=== PATIENT | female | born 1960 | race Hispanic/Latino ===

== ENCOUNTER 2017-07-12 16:13 | Inpatient (IN) | payer MEDICAID, OTHER ==
[2017-07-12 16:13] VITALS: BMI 45.3
--- NOTE | 2017-07-12 16:27 | ED PDOC ---
Psych Transfer Clearance - Clearance Statement Clearance Statement: Reviewed vital signs, lab results and transfer papers. Patient clinically stable for psychiatric admission.
[2017-07-12] MEDS ORDERED: DiphenhydrAMINE 50 mg/ml Inj IM PRN (17:19)
[2017-07-12] MEDS ORDERED: Alum-Mag Hydrox-Simethicone Susp (30 mL) PO PRN (17:19)
[2017-07-12 19:23] LABS: THYROID STIMULATING HORMONE 2.75 mIU/ML (0.46-4.68)
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
[2017-07-13] MEDS: Levothyroxine 88 MCG TAB PO SCH (06:34)
[2017-07-13] MEDS: Pantoprazole 40 mg EC Tab PO SCH (09:27)
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
[2017-07-13] MEDS: Divalproex 250 mg DR(BID formulation) PO SCH (18:24)
[2017-07-13 21:25] VITALS: O2SAT 97
[2017-07-14] MEDS: Levothyroxine 88 MCG TAB PO SCH (06:27)
[2017-07-14] MEDS: Divalproex 250 mg DR(BID formulation) PO SCH ×2 (09:32→17:53)
[2017-07-14] MEDS: Pantoprazole 40 mg EC Tab PO SCH (09:32)
--- NOTE | 2017-07-14 10:20 | PCM.PYCHPN ---
Psychiatric Progress Note - Psychiatric Progress Note Patient seen today, length of contact: pt seen and evaluated Patient Chief Complaint: pt has remained very easily,nervous,irritible and somewhat internally preoccupied.pt is at times disorganized in her thinking with a poor insight regarding her psych illness . Problems Identified/Issues Discussed: pt was admitted for psychotic agitation and homicidal ideation. Medical Problems: EKG results reviewed and normal sinus rhythm. WBC reviewed DSM 5 Symptoms Update: schizoaffective disorder Medication Change: No Medical Record Reviewed: Yes Mental Status Examination - Cognitive Function Orientation: Person, Place, Situation, Time Memory: Intact Attention: Poor Fund of Knowledge: Poor - Mood Mood: Depressed - Affect Affect: Flat, Depressed - Speech Speech: Appropriate - Formal Thought Process Formal Thought Process: No Impairment, Paranoia, Circumstantial - Suicidal Ideation Suicidal Ideation: No Goal/Treatment Plan - Goal/Treatment Plan Progress Toward Problem(s) and Goals/Treatment Plan: Anuel thomas ue the current regimen of clozaril,neurontin and depakote and ajust meds by following on wbc count and valproic acid leven and monitoring the psychosis. will engage pt in therapy Hospitalist follow up for hypothyroidism
--- NOTE | 2017-07-14 13:24 | CARD ---
APPROVED REPORT EKG Measurement Heart [id number] OR [id number] <Conclusion> Normal sinus rhythm Normal ECG
[2017-07-14] MEDS: Magnesium Hydroxide Susp 30 ml UD PO PRN (17:58)
[2017-07-15] MEDS: Levothyroxine 88 MCG TAB PO SCH (06:43)
[2017-07-15 08:36] LABS: BASO % 0.4 % (0.0-2.0); HEMATOCRIT 45.2 % (34.0-47.0); LYMPH # 1.9 K/uL (1.0-4.3); LYMPH % 27.8 % (20.0-40.0); MEAN CELL VOLUME 89.6 fl (81.0-99.0); MEAN CORPUSCULAR HGB CONC 32.4 g/dL (33.0-37.0); MEAN PLATELET VOLUME 9.9 fl (7.2-11.7); MONO # 0.4 K/uL (0.0-0.8); MONO % 6.7 % (0.0-10.0); NEUT # 4.4 K/uL (1.8-7.0); NEUT % 65.1 % (50.0-75.0); NRBC % 0.2 % (0.0-0.0); RED CELL DISTRIBUTION WIDTH 15.3 % (11.5-14.5); WHITE BLOOD COUNT 6.7 K/uL (4.8-10.8)
[2017-07-15] MEDS: Pantoprazole 40 mg EC Tab PO SCH (09:00)
[2017-07-15] MEDS: Divalproex 250 mg DR(BID formulation) PO SCH ×2 (09:00→17:39)
--- NOTE | 2017-07-15 18:56 | PCM.PYCHPN ---
Psychiatric Progress Note - Psychiatric Progress Note Patient seen today, length of contact: pt seen and evaluated Patient Chief Complaint: pt has been less ,nervous and less ,irritible and somewhat internally preoccupied.pt is at times disorganized in her thinking with a poor insight regarding her psych illness . WBC=6.7 today.no side effects to clozaril except pt c/o feeling tired at times. Problems Identified/Issues Discussed: pt was admitted for psychotic agitation and homicidal ideation. Medical Problems: EKG results reviewed and normal sinus rhythm. WBC reviewed is 6.7 today and ordered to repeat in am Medication Change: No Medical Record Reviewed: Yes Mental Status Examination - Cognitive Function Orientation: Person, Place, Situation, Time Memory: Intact Attention: Poor Fund of Knowledge: Poor - Mood Mood: Depressed - Affect Affect: Flat, Depressed - Speech Speech: Appropriate - Formal Thought Process Formal Thought Process: No Impairment, Paranoia, Circumstantial - Suicidal Ideation Suicidal Ideation: No Goal/Treatment Plan - Goal/Treatment Plan Progress Toward Problem(s) and Goals/Treatment Plan: Anuel galaviz the current regimen of clozaril,neurontin and depakote and adjust meds by following on wbc count and valproic acid level and monitoring the psychosis.will recheck wBC and valproic acid level in am will engage pt in therapy Hospitalist follow up for hypothyroidism
[2017-07-15] MEDS: Magnesium Hydroxide Susp 30 ml UD PO PRN (21:25)
[2017-07-16] MEDS: Levothyroxine 88 MCG TAB PO SCH (06:29)
[2017-07-16] MEDS: Divalproex 250 mg DR(BID formulation) PO SCH (08:56)
[2017-07-16] MEDS: Pantoprazole 40 mg EC Tab PO SCH (08:56)
--- NOTE | 2017-07-16 12:04 | PCM.PYCHPN ---
Psychiatric Progress Note - Psychiatric Progress Note Patient seen today, length of contact: in treatment team Patient Chief Complaint: when can i leave? Problems Identified/Issues Discussed: pt reports poor sleep. reports feeling paranoid and having thoughts about the world ending. she is tearful in groups at times. she appears to be internally preoccupied and anxious. no complaints of medication side effects. Medication Change: No Medical Record Reviewed: Yes Mental Status Examination - Cognitive Function Orientation: Person, Place, Situation, Time Memory: Intact Attention: WNL Concentration: WNL Association: WN Fund of Knowledge: [facility] Decription of patient's judgement and insights: fair - Mood Mood: Depressed - Affect Affect: Flat, Depressed - Speech Speech: Appropriate - Formal Thought Process Formal Thought Process: No Impairment, Paranoia, Circumstantial - Suicidal Ideation Suicidal Ideation: No - Homicidal Ideation Homicidal Ideation: No Goal/Treatment Plan - Goal/Treatment Plan Need for Continued Stay: Remain at risks for inpatient hospitalization, Severe functional impairment Progress Toward Problem(s) and Goals/Treatment Plan: schizoaffective disorder will increase depakote as level is 27 will increase clozaril and split dose will start doxepin disposition planning pt is aware and understands r/b/se of medication changes Estimated Date of D/C: 07/20/17
[2017-07-16] MEDS: Divalproex 500 mg DR(BID formulation) PO SCH (17:30)
[2017-07-17] MEDS: Levothyroxine 88 MCG TAB PO SCH (08:39)
[2017-07-17] MEDS: Pantoprazole 40 mg EC Tab PO SCH (08:39)
[2017-07-17] MEDS: Divalproex 500 mg DR(BID formulation) PO SCH ×2 (08:40→16:57)
--- NOTE | 2017-07-17 09:44 | PCM.PYCHPN ---
Psychiatric Progress Note - Psychiatric Progress Note Patient seen today, length of contact: discussed with team Patient Chief Complaint: why am i on so many medicines Problems Identified/Issues Discussed: pt still c/o poor sleep. she is paranoid, thoughts are disorganized. c/o feeling tired during the day. attends groups, tearful at times. Medication Change: Yes Medical Record Reviewed: Yes Mental Status Examination - Cognitive Function Orientation: Person, Place, Situation, Time Memory: Intact Attention: WNL Concentration: WNL Association: WNL Fund of Knowledge: [facility] Decription of patient's judgement and insights: fair - Mood Mood: Depressed - Affect Affect: Flat, Depressed - Speech Speech: Appropriate - Formal Thought Process Formal Thought Process: No Impairment, Paranoia, Circumstantial - Suicidal Ideation Suicidal Ideation: No - Homicidal Ideation Homicidal Ideation: No Goal/Treatment Plan - Goal/Treatment Plan Need for Continued Stay: Remain at risks for inpatient hospitalization, Severe functional impairment Progress Toward Problem(s) and Goals/Treatment Plan: schizoaffective disorder will increase depakote as level is 27 will increase clozaril by 50mg tonight will dc doxepin and start benadryl disposition planning pt is aware and understands r/b/se of medication changes Estimated Date of D/C: 07/20/17
[2017-07-18] MEDS: Levothyroxine 88 MCG TAB PO SCH (06:45)
[2017-07-18] MEDS: Divalproex 500 mg DR(BID formulation) PO SCH ×2 (09:21→17:02)
[2017-07-18] MEDS: Pantoprazole 40 mg EC Tab PO SCH (09:22)
--- NOTE | 2017-07-18 11:07 | PCM.PYCHPN ---
Psychiatric Progress Note - Psychiatric Progress Note Patient seen today, length of contact: discussed with team Patient Chief Complaint: i feel better Problems Identified/Issues Discussed: pt reports she is sleeping better. she reports thoughts are more clear. denies medication side effects. Medication Change: Yes Medical Record Reviewed: Yes Mental Status Examination - Cognitive Function Orientation: Person, Place, Situation, Time Memory: Intact Attention: WNL Concentration: WNL Association: WNL Fund of Knowledge: WN Decription of patient's judgement and insights: fair - Mood Mood: Depressed - Affect Affect: Broad - Speech Speech: Appropriate - Formal Thought Process Formal Thought Process: No Impairment Psychotic Thoughts and Behaviors: thought are more organized - Suicidal Ideation Suicidal Ideation: No - Homicidal Ideation Homicidal Ideation: No Goal/Treatment Plan - Goal/Treatment Plan Need for Continued Stay: Remain at risks for inpatient hospitalization, Severe functional impairment Progress Toward Problem(s) and Goals/Treatment Plan: schizoaffective disorder continue current clozaril and depakote check depakote level tomorrow and dc thus/fri disposition planning- return to providers Estimated Date of D/C: 07/20/17
[2017-07-19] MEDS: Levothyroxine 88 MCG TAB PO SCH (06:39)
[2017-07-19 08:27] LABS: ALB/GLOB RATIO 1.3 (1.0-2.1); BILIRUBIN,TOTAL 0.6 mg/dl (0.2-1.3); TOTAL PROTEIN 7.4 G/DL (6.3-8.2)
[2017-07-19 09:18] VITALS: BP 142/93; PULSE 87; RESP 18; TEMP 98.2
[2017-07-19] MEDS: Divalproex 500 mg DR(BID formulation) PO SCH (09:48)
[2017-07-19] MEDS: Pantoprazole 40 mg EC Tab PO SCH (09:49)
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
== END 2017-07-19 15:59 | disposition home or self-care (01) | DRG 430 ==
LOC: H.ER 16:13 → H.PSYCH 16:27
PROVIDERS: ADMIT Psychiatry & Neurology Psychiatry; ATTEND Psychiatry & Neurology Psychiatry
PROC: GZHZZZZ Group Psychotherapy (ICD-10-PCS; principal; 2017-07-12)
DX: F25.0 Schizoaffective disorder, bipolar type (principal); R45.850 Homicidal ideations; I10 Essential (primary) hypertension; E03.9 Hypothyroidism, unspecified; K59.00 Constipation, unspecified; R73.03 Prediabetes; E66.9 Obesity, unspecified; Z68.37 Body mass index [BMI] 37.0-37.9, adult; Z88.0 Allergy status to penicillin